=== PATIENT | male | born 1945 | race Hispanic/Latino ===

== ENCOUNTER → 2025-07-28 | Outpatient (CLI) | payer OTHER ==
--- NOTE | 2025-07-29 01:39 | HMCIMG ---
EXAM: ULTRASOUND OF THE PELVIS, NON-OB CLINICAL INFORMATION: Urinary incontinence. TECHNIQUE: Transabdominal pelvic ultrasound with pre- and post-void bladder assessment was performed. COMPARISON: None provided. FINDINGS: URINARY BLADDER: Pre-void bladder volume measures 113 mL, bladder wall thickness measures 2 mm, and post-void residual volume measures 8.2 mL. PROSTATE: Prostate measures 3.4 ??? 3.2 ??? 3.1 cm with calculated volume 17.4 mL. IMPRESSION: * Small post-void residual volume (8.2 mL), which is within normal limits. * Bladder wall thickness 2 mm, which is within normal limits for a distended bladder. * Prostate size 3.4 ??? 3.2 ??? 3.1 cm with volume 17.4 mL, which is within normal limits. * Correlate clinically for causes of urinary incontinence, and consider urodynamic testing if symptoms persist or worsen. /[place]
== END | disposition home or self-care (01) ==
LOC: RAH 08:54
PROVIDERS: ATTEND Internal Medicine
DX: N39.498 Other specified urinary incontinence (principal)
CPT/HCPCS: 76856